=== PATIENT | female | born 1995 | race Caucasian/White ===

== ENCOUNTER 2017-04-28 13:11 | Emergency (ER) | payer MEDICAID ==
--- NOTE | 2017-05-03 08:21 | NUR ---
Pt referral for diabetic teaching. Called ER. Gave them number to contact diabetic educators.
--- NOTE | 2017-05-05 15:58 | ER ---
ADMIT: 04/28/2017 RM/LOC: ER [facility] MR#: [id number] [facility] [address] [place] [id number] [address] [address] Emergency Room Report SEX: F AGE: 21 : 1995 DATE: 04/28/2017 ADDENDUM: This patient comes into the ER because she is worried she is in DKA. She has a 4-month-old baby and right during her she was diagnosed as having type 1 diabetes. She is taking insulin. She states she is currently homeless, having difficulty controlling her insulin, and just not feeling well. She states she is having a lot of issues with anxiety. On physical exam, she is alert and oriented. Her lungs are clear. Her abdomen is soft. She denies any pain. She did have a dry mouth. IV of normal saline was started. She was given a liter bolus. We did see that her urine had 4+ ketones. Her bedside glucose was 252. CBC was normal. We did set her up with Social Work. She was given a diabetic tray, which she ate without any difficulty, kept it down without any difficulty. We also will set her up for some diabetic teaching, as she seems to have issues on what she can eat and what she cannot eat. Please see my T-sheet. APOLINAR Fofana / Neftaly Kennedy MD / modl JOB #: [id number] CC: Neftaly Kennedy MD, Attending Physician Cathi Rivera MD, Family Physician
== END 2017-04-28 16:54 | disposition home or self-care (01) ==
LOC: ER 13:11
DX: E10.9 Type 1 diabetes mellitus without complications (principal); F41.9 Anxiety disorder, unspecified; F32.9 Major depressive disorder, single episode, unspecified; Z59.0 Homelessness; Z79.4 Long term (current) use of insulin; Z79.899 Other long term (current) drug therapy; Z88.1 Allergy status to other antibiotic agents